=== PATIENT | female | born 2005 | race Caucasian/White ===

== ENCOUNTER 2025-02-15 19:47 | Emergency (ER) | payer MEDICAID, SELFPAY ==
[2025-02-15 19:47] VITALS: BMI 18.7
[2025-02-15 19:56] VITALS: BP 122/84; PULSE 83; RESP 20; TEMP 37.6; O2SAT 100
[2025-02-15] MEDS: LIDOCAINE HCL 1% 20 ML VIAL INFL (20:11)
--- NOTE | 2025-02-15 20:28 | EDNOTE_ITS ---
ED General RME/HPI General Chief complaint: Skin/Abscess/Foreign Body Stated complaint: ABSCESS ON LEFT ARMPIT Time Seen by Provider: 02/15/25 20:01 Arrival date/time: 02/15/25 19:47 CC: Painful bump in her left armpit HPI ongoing for the past week and a half with progressive increase in severity. The patient admits that after shaving both this and her DIANE area patient has noted small pus pockets that have popped but this 1 did not. Patient denies fever chills shortness of breath or difficulty breathing. Patient was placed on Bactrim by [facility] 2 days ago. Patient states he has had no relief. Patient is afebrile nontoxic-appearing but in mild discomfort. Related Data Allergies Allergy/AdvReac Type Severity Reaction Status Date / Time NKA* Allergy Uncoded 01/12/17 16:35 Review of Systems Review of Systems Narrative Review of Systems: GEN: No fever, no chills, no weight loss EYES: No discharge, no visual changes, no pain HEENT: No ear pain, no congestion, no sore throat PULM: No shortness of breath, no cough, no congestion CV: No chest pain, no dyspnea on exertion, no palpitations GI: No nausea, no vomiting, no diarrhea, no pain, no constipation : No frequency, no urgency, no dysuria MUSC/SKEL: No joint pain, no back pain SKIN: left axillary abscess no rash PSYCH: No hallucinations, no depression HEME/LYMPH: No easy bleeding or bruising tendencies NEURO: No weakness, no headache Past Medical History Social History SMOKING STATUS: Never smoker ED Exam Narrative Physical exam: [General: In mild discomfort acute distress Head normocephalic HEENT: Within acceptable limits Neck is supple nontender Chest equal chest rise nontender to palpation Respiratory: Clear to auscultation no wheezes crackles or rubs CV: Rate rhythm is regular no murmurs rubs or clicks Abdomen is distended secondary to body habitus soft nontender no masses positive bowel sounds all 4 quadrants Back: No CVA tenderness no spinous process tenderness from cervical spine thoracic and lumbar spine Skin: 4 cm bulging abscess in the left axilla, no surrounding erythema or streaking. Otherwise skin is intact no petechiae rash induration ulceration or crepitus Extremities: Moving all extremity against resistance cap refill less than 2 seconds neurosensory intact Neuro: Awake alert oriented x3 Glascow coma 15 no focal deficits] Course Quality Measures none Orders Category Date Time Status Lidocaine 1% 20 ml [Xylocaine 1% 20 ML] Med 02/15/25 20:07 Discontinued 20 ml INFL X1 ONE Vital Signs Vital signs: Vital Signs Temperature 99.6 F 02/15/25 19:56 Pulse Rate 83 02/15/25 19:56 Respiratory Rate 20 02/15/25 19:56 Blood Pressure 122/84 02/15/25 19:56 Pulse Oximetry (%) 100 02/15/25 19:56 Oxygen Delivery Method Room Air 02/15/25 19:56 Procedures -ED Procedure Comment I&D: Lidocaine anesthesia 1% lidocaine and 3 mL injected into the local site, using a #11 scalpel 1 cm crosshatch incision made. Moderate amount of exudate mixed with blood was expressed from the site without complications. This was packed with quarter inch plain gauze and a bulky dressing the applied. Patient tolerated the procedure well. [facility] Patient data External records reviewed:: [facility] previous records Clinical information provided by:: patient Social determinants that could affect healthcare access:: none Patient has the following chronic illnesses:: None How is presenting disease/condition affected by chronic disease/condition?: uneffected by Evaluation data The following diagnostics were reviewed and interpreted by me:: other (specify) (None) Lab and/or radiology exams considered but not ordered:: None Interpretation Summary: Axilla abscess Medications Medications considered but not ordered:: None Medication administrations:: Medication Administration History Discontinued Medications Lidocaine HCl (Lidocaine Hcl 1% 20 Ml Vial) 20 ml INFL X1 ONE Stop: 02/15/25 20:08 Last Admin: 02/15/25 20:11 Dose: 20 ml Documented By: KF None Consultations Consultation(s) initiated? (list below): No Diagnosis Differential Diagnosis ED Complaint MDM: Axilla abscess cellulitis bulla Most likely diagnosis given after review of the tests above:: Left axilla abscess Admission Indicated Admission indicated?: not indicated Explain why admission is indicated or not indicated:: Stable for discharge Admission Request Was there a request for admission?: No Disposition Plan Disposition Plan: Discharge Discharge Attestation Discharge Attestation: The patient and all family members were given an opportunity to ask questions and understood the discharge instructions. Discharge instructions specifically effects, indications for sooner follow up or return to the emergency department, and the expected course of current diagnosis. Patient condition: Stable Medical Decision Making Differential Diagnosis Differential Diagnosis: Axilla abscess cellulitis bulla Discharge Plan Plan Patient Disposition: HOME (Self Care) Patient condition on transfer: Stable Prescriptions/Referrals Referrals: Rob Fuller MD [Physician] - In 1 week Temporary Provider,ED [Primary Care Provider] - In 1 week Problem List Clinical Impression: Abscess of axilla, left Patient/Caregiver Discharge Instructions Education Materials: ED Abscess, Incision And Drainage Additional Instructions: Keep the site clean and dry, return in 3 days to have the packing removed. If there is a worsening of symptoms prior to this do not wait return to the emergency room for reevaluation. Follow-up with [facility] to be tested for MRSA. Avoid shaving or any type of friction that will abrade your skin if you do have mixed your skin please watch them closely to make sure they do not break out into abscesses. Print Language: [place] L[place]an Stand Alone Forms: Lauren Award Info., Work/School Release, Patient Portal Info Letter DONNIE/CED Supervising Physician DONNIE/CED Supervising Physician: Trever Dye ENP
== END 2025-02-15 20:39 | disposition home or self-care (01) ==
LOC: SERX 20:42
PROVIDERS: Emergency Provider Emergency Medicine; PCP Nurse Practitioner Family
DX: L02.412 Cutaneous abscess of left axilla (principal)
CPT/HCPCS: 10060; 99283; J3490

== ENCOUNTER 2025-04-10 15:33 | Emergency (ER) | payer MEDICAID, SELFPAY ==
[2025-04-10 15:43] VITALS: BP 124/82; PULSE 78; RESP 18; TEMP 36.9; O2SAT 98
--- NOTE | 2025-04-10 15:54 | EDNOTE_ITS ---
ED Skin Abcess FB-RME/HPI General Chief complaint: Skin/Abscess/Foreign Body Stated complaint: PAINFUL LUMP UNDER BELLY BUTTON X 1 WK Time Seen by Provider: 04/10/25 15:52 Source: patient Arrival date/time: 04/10/25 15:33 Mode of arrival: ambulatory Limitations: no limitations RME / HPI RME / HPI narrative: Patient complains of a lesion to the area of the umbilicus x 4 days. MD complaint: lesion Onset (ago): day(s) (4 days) Tetanus up to date: yes Treatments prior to arrival: none Related Data Previous Rx's ?Medication ?Instructions ?Recorded ibuprofen 600 mg tablet 600 mg PO TID PRN pain #30 t abs 04/10/25 sulfamethoxazole 800 1 tab PO BID #20 tabs mg-trimethoprim 160 mg tablet (Bactrim DS) Allergies Allergy/AdvReac Type Severity Reaction Status Date / Time NKA* Allergy Uncoded 04/10/25 15:36 Review of Systems Constitutional Constitutional: Reports system reviewed and no additional complaints, except as documented Eyes Eyes: Reports system reviewed and no additional complaints, except as documented, Denies dry eyes, Denies exophthalmos and Reports floaters Cardiovascular Cardiovascular: Denies chest pain with activity and Denies claudication ED Exam Narrative Physical exam: There is a abscess-like process taking place 1-2 o'clock relative to the umbilicus. It is oozing purulence presently and there is a scab atop it. It is surrounded by erythema. General Limitations: Present no limitations General appearance: Present alert and in no apparent distress Head Head exam: Present atraumatic Eye Eye exam: Present normal appearance and EOMI ENT ENT exam: Present normal exam, normal oropharynx and mucous membranes moist Neck Neck exam: Present normal inspection, full ROM and trachea midline Chest Chest inspection: Present normal inspection and symmetric chest wall rise Respiratory Respiratory exam: Present normal lung sounds bilaterally Abdominal Exam Abdominal exam: Present soft Extremities Exam Extremities exam: Present normal inspection and full ROM Back Exam Back exam: Present normal inspection and full ROM Neurological Exam Neurological exam: Present alert, oriented X3 and CN II-XII intact Psychiatric Psychiatric exam: Present normal affect and normal mood Skin Skin exam: Present warm, dry, intact, normal color and other (There is a single solitary lesion approximately 1-2 o'clock relative to the umbilicus. There is a scab top of the lesion and it is surrounded by erythema. It is presently oozing purulence.) Course Course Course Narrative: Patient will have Toradol 30 mg IM as well as Rocephin 1 g IM. I will send to the pharmacy Bactrim to be consumed 1 p.o. every 12 x 10 days. She is to have a 2-day recheck or if she is worse then she is to return here. Patient will have a nonocclusive dressing applied to the wound. Quality Measures none Vital Signs Vital signs: Vital Signs Temperature 98.5 F 04/10/25 15:43 Pulse Rate 78 04/10/25 15:43 Respiratory Rate 18 04/10/25 15:43 Blood Pressure 124/82 04/10/25 15:43 Pulse Oximetry (%) 98 04/10/25 15:43 Oxygen Delivery Method Room Air 04/10/25 15:43 Pulse ox is 98% room air Skin / Abscess / Foreign Body MDM Narrative MDM Narrative:: I was able to express purulence from the lesion. Patient will have 30 mg of Toradol IM as well as 1 g of Rocephin IM and I will send to the pharmacy Bactrim DS to be consumed 1 p.o. every 12 x 10 days. I will also send ibuprofen 600 mg to the pharmacy of her choice. Patient is to have a 2-day wound check and if she is worse she is to return here. Patient data External records reviewed:: Other (specify) Clinical information provided by:: patient Social determinants that could affect healthcare access:: none Patient has the following chronic illnesses:: No chronic illness How is presenting disease/condition affected by chronic disease/condition?: no chronic disease (No chronic disease) Evaluation data The following diagnostics were reviewed and interpreted by me:: lab results Lab and/or radiology exams considered but not ordered:: Labs and radiology not necessary Interpretation Summary: N/A Medications / Prescriptions Medications or Prescriptions considered but not ordered:: N/A Medication administrations:: Rocephin 1 g and Toradol 30 mg IM both IM Consultations Consultation(s) initiated? (list below): No Diagnosis Skin/Abscess Differential Diagnosis: urticaria, cellulitis, insect bites and impetigo Most likely diagnosis given after review of the tests above:: No test ordered Admission Indicated Admission indicated?: not indicated Admission Request Was there a request for admission?: No Disposition Plan Disposition Plan: Discharge Discharge Attestation Discharge Attestation: The patient and all family members were given an opportunity to ask questions and understood the discharge instructions. Discharge instructions specifically effects, indications for sooner follow up or return to the emergency department, and the expected course of current diagnosis. Patient condition: Stable Discharge Plan Plan Patient Disposition: HOME (Self Care) Discharge Disposition comment: To be discharged in no apparent distress Patient condition on transfer: Stable Prescriptions/Referrals Prescriptions/Med Rec: New sulfamethoxazole-trimethoprim [Bactrim DS] 800-160 mg tablet 1 tab PO BID Qty: 20 0RF ibuprofen 600 mg tablet 600 mg PO TID PRN (Reason: pain) Qty: 30 0RF Problem List Clinical Impression: Abscess Patient/Caregiver Discharge Instructions Discharge Activity: activity as tolerated Education Materials: Abscess Drainage Print Language: Mohawk Stand Alone Forms: Lauren Award Info., Patient Portal Info Letter PA/LOSS PREVENTION AND SAFETY MANAGER Supervising Physician PA/CED Supervising Physician: Amelia
[2025-04-10] MEDS: cefTRIAXone 1,000 MG, LIDOCAINE 1% 20 ML 2.1 ML IM (16:29)
[2025-04-10] MEDS: KETOROLAC INJ 60 MG/2 ML VIAL 30 MG IM (16:29)
== END 2025-04-10 16:40 | disposition home or self-care (01) ==
LOC: SERX 16:16
PROVIDERS: Emergency Provider Emergency Medicine; PCP Family Medicine
DX: L02.211 Cutaneous abscess of abdominal wall (principal)
CPT/HCPCS: 96372; 99283; J0696; J1885; J3490